=== PATIENT | male | born 1970 | race Caucasian/White ===

== ENCOUNTER 2017-07-22 21:14 | Inpatient (IN) | payer BC ==
[2017-07-22 21:27] VITALS: BMI 25.5
--- NOTE | 2017-07-22 22:04 | HP ---
CIWA Score - CIWA Score Nausea/Vomitin-No Nausea/No Vomiting Muscle Tremors: 4-Moderate,w/Arms Extend Anxiety: 4-Mod. Anxious/Guarded Agitation: 4-Moderately Restless Paroxysmal Sweats: 1-Minimal Palms Moist Orientation: 0-Oriented Tacttile Disturbances: 1-Very Mild Itch/Numbness Auditory Disturbances: 1-Very Mild Visual Disturbances: 2-Mild Sensitivity Headache: 3-Moderate CIWA-Ar Total Score: 20 Admission ROS S - HPI Chief Complaint: withdrawal symptoms Allergies/Adverse Reactions: Allergies Allergy/AdvReac Type Severity Reaction Status Date / Time No Known Allergies Allergy Verified 07/22/17 21:42 History of Present Illness: 47 yo male with extensive history of alcohol dependence is her for detox. Reports alcohol use has worsen since the of his mother in Jun, 2013. Currently smokes on average 1 pack pack of cigarettes when he drinks and 3 cigarettes when sober. Reports hx of fatty Liver, depression, anxiety, reports has had suicidal thoughts, last time time thoughts were present a few weeks ago , currently reports no suicide attempts. currently denies suicidal / homicidal ideation. Last detox at at [facility],. Longest period of sobriety 6 years while in [facility], while in the community the longest period sobriety, 3 months. Exam Limitations: No Limitations - Ebola screening Have you traveled outside of the country in the last 21 days: No Have you had contact with anyone from an Ebola affected area: No Have you been sick,other than usual withdrawal symptoms: No Do you have a fever: No - Review of Systems Constitutional: Chills, Changes in sleep, Unintentional Wgt. Loss EENT: reports: Dental Problems (gum pain secondary to tooth extraction uses glass), Other Respiratory: reports: No Symptoms reported Cardiac: reports: No Symptoms Reported GI: reports: Abdominal cramping (occurs when he is sober) : reports: No Symptoms Reported (reports no urinary symptoms) Musculoskeletal: reports: No Symptoms Reported Integumentary: reports: No Symptoms Reported Neuro: reports: Tremors Endocrine: reports: No Symptoms Reported Hematology: reports: No Symptoms Reported Psychiatric: reports: Orientated x3, Anxious, Depressed Other Systems: Reviewed and Negative Patient History - Patient Medical History Hx Anemia: No Hx Asthma: No Hx Chronic Obstructive Pulmonary Disease (COPD): No Hx Cancer: No Hx Cardiac Disorders: No Hx Congestive Heart Failure: No Hx Hypertension: No Hx Hypercholesterolemia: No Hx Pacemaker: No HX Cerebrovascular Accident: No Hx Seizures: No Hx Dementia: No Hx Diabetes: No Hx Gastrointestinal Disorders: No Hx Liver Disease: Yes (FATTY LIVER) Hx Genitourinary Disorders: No Hx Sexually Transmitted Disorders: No Hx Renal Disease (ESRD): No Hx Thyroid Disease: No Hx Human Immunodeficiency Virus (HIV): No (last 09/03 negative) Hx Hepatitis C: No (2015) Hx Depression: Yes Hx Suicide Attempt: No Hx Bipolar Disorder: No Hx Schizophrenia: No Other Medical History: reports suicidal thoguhts - Patient Surgical History Past Surgical History: No Hx Neurologic Surgery: No Hx Cataract Extraction: No Hx Cardiac Surgery: No Hx Lung Surgery: No Hx Breast Surgery: No Hx Breast Biopsy: No Hx Abdominal Surgery: No Hx Appendectomy: No Hx Cholecystectomy: No Hx Genitourinary Surgery: No Hx Section: No Hx Orthopedic Surgery: No Other Surgical History: pilonidal cyst in 2004 Anesthesia Reaction: No - PPD History Previous Implant?: Yes Documented Results: Negative w/proof Date: 11/13/15 Results: 0 MM PPD to be Administered?: Yes - Reproductive History Patient is a Female of Child Bearing Age (11 -55 yrs old): No - Smoking Cessation Smoking history: Current every day smoker Have you smoked in the past 12 months: No Aproximately how many cigarettes per day: 3 Cigars Per Day: 0 Hx Chewing Tobacco Use: No Initiated information on smoking cessation: No 'Breaking Loose' booklet given: 07/22/17 - Substance & Tx. History Hx Alcohol Use: Yes Hx Substance Use: No Substance Use Type: Alcohol Hx Substance Use [facility]: [facility] ([facility] - Substances Abused Alcohol Route: Oral Frequency: Daily Amount used: beer- 1 case Age of first use: 17 Date of Last Use: 07/22/17 Family Disease History - Family Disease History Family Disease History: Diabetes: Father (ALCOHOL), Other: Father, Mother ( brain ), Brother (suicid "rope") Admission Physical Exam BHS - Vital Signs Vital Signs: Vital Signs - 24 hr 07/22/17 21:25 Temperature 97.9 F Pulse Rate 79 Respiratory 18 Rate Blood Pressure 122/84 - Physical General Appearance: Yes: Alcohol on Breath, Tremorous, Anxious HEENTM: Yes: EOMI, Hearing grossly Normal, Normal ENT Inspection, Normocephalic , Normal Voice, RODO, Pharynx Normal Respiratory: Yes: Chest Non-Tender, Lungs Clear, Normal Breath Sounds, No Respiratory Distress, No Accessory Muscle Use Neck: Yes: No masses,lesions,Nodules, Supple, Trachea in good position Breast: Yes: Breast Exam Deferred Cardiology: Yes: Within Normal Limits, Regular Rhythm, Regular Rate, S1, S2 Abdominal: Yes: Normal Bowel Sounds, Non Tender, Flat, Soft Genitourinary: Yes: Within Normal Limits (reports no urinary symptoms) Back: Yes: Normal Inspection Extremities: Yes: Normal Capillary Refill, Normal Inspection, Normal Range of Motion, Non-Tender Neurological: Yes: partner marketing manager II-XII NML intact, Fully Oriented, Alert, Motor Strength 5/5, Normal Response, Depressed Affect Integumentary: Yes: Normal Color, Dry, Warm Lymphatic: Yes: Within Normal Limits - Addiitonal Findings: HIV testing was offered, patient decline. Benefits and risk discussed. - Diagnostic (1) Anxious mood Current Visit: Yes Status: Acute (2) Depressed mood Current Visit: Yes Status: Acute (3) Alcohol dependence with uncomplicated withdrawal Current Visit: No Status: Chronic (4) Fatty liver Current Visit: No Status: Chronic (5) Nicotine dependence Current Visit: No Status: Chronic Qualifiers: Nicotine product type: cigarettes Substance use status: uncomplicated Qualified Code(s): F17.210 - Nicotine dependence, cigarettes, uncomplicated Comment: patient stated that smoke 3-5 cigarettes during drinking days no cigarette smoking when not drinking alcohol Cleared for Admission [facility] - Detox or Rehab [facility] Level of Care: Medically Managed Detox Regimen/Protocol: Librium [facility] Breath Alcohol Content Breath Alcohol Content: 180 Urine Drug Screen - Results Drug Screen Negative: Yes
[2017-07-22] MEDS ORDERED: hydrOXYzine PAMOATE 50 MG CAPSULE (FP) PO PRN (22:19)
[2017-07-22] MEDS ORDERED: MAGNESIUM HYDROX 2400MG/30ML ORAL SUSPENSION 30 ML CUP PO PRN (22:19)
[2017-07-22] MEDS ORDERED: chlordiazePOXIDE HCL 25 MG CAPSULE PO ONE (22:19)
[2017-07-22] MEDS ORDERED: MAGNESIUM CITRATE 300 ML BOTTLE PO PRN (22:19)
[2017-07-22] MEDS ORDERED: chlordiazePOXIDE HCL 25 MG CAPSULE PO PRN (22:19)
[2017-07-22] MEDS ORDERED: LOPERAMIDE HCL 2 MG CAPSULE PO PRN (22:19)
[2017-07-22] MEDS ORDERED: guaiFENesin/D-METHORPHAN HB 10 ML UNIT-DOSE CUPS PO PRN (22:19)
[2017-07-22] MEDS ORDERED: ACETAMINOPHEN 325 MG TABLET (FP) PO PRN (22:19)
[2017-07-22] MEDS ORDERED: P-EPHED 60MG/TRIPROLIDI 2.5MG TABLET PO PRN (22:19)
[2017-07-22] MEDS ORDERED: IBUPROFEN 400 MG TABLET (FP) PO PRN (22:19)
[2017-07-22] MEDS ORDERED: MAG HYDROX/AL HYDROX/SIMETH 30 ML UNIT-DOSE CUP PO PRN (22:19)
[2017-07-22] MEDS ORDERED: NICOTINE POLACRILEX 2 MG GUM BC PRN (22:19)
[2017-07-22] MEDS ORDERED: MENTHOL/PHENOL 1 EACH UD MM PRN (22:19)
[2017-07-22] MEDS: chlordiazePOXIDE HCL 25 MG CAPSULE PO SCH (23:28)
[2017-07-23] MEDS: chlordiazePOXIDE HCL 25 MG CAPSULE PO SCH ×4 (05:19→22:48)
[2017-07-23 09:59] LABS: HEMATOCRIT 38.9 % (35.4-49); HEMOGLOBIN 12.5 GM/dL (11.7-16.9); MCH 28.7 pg (25.7-33.7); MCHC 32.2 g/dl (32.0-35.9); PLATELET COUNT 173 K/MM3 (134-434); RBC 4.37 M/mm3 (4.00-5.60); RDW 13.1 % (11.9-15.9); WHITE BLOOD COUNT 5.5 K/mm3 (4.0-10.0)
[2017-07-23] MEDS: PRENATAL VITAMINS W/ FOLIC ACID TABLET (FP) PO SCH (10:14)
[2017-07-23] MEDS: NICOTINE 14 MG/24 HOURS TOPICAL PATCH TD SCH (10:16)
--- NOTE | 2017-07-23 10:16 | EKG ---
Test Reason : Blood Pressure : / mmHG Vent. Rate : 088 BPM Atrial Rate : 088 BPM P-R Int : 176 ms QRS Dur : 094 ms QT Int : 368 ms P-R-T Axes : 073 052 044 degrees QTc Int : 445 ms NORMAL SINUS RHYTHM VOLTAGE CRITERIA FOR LEFT VENTRICULAR HYPERTROPHY NONSPECIFIC T WAVE ABNORMALITY ABNORMAL ECG NO PREVIOUS ECGS AVAILABLE Confirmed by MICHELE GUY MD ([id number]) on 07/23/2017 10:15:30 AM Referred By: Confirmed By:MICHELE GUY MD
[2017-07-23 10:20] LABS: ALBUMIN 3.5 g/dl (3.4-5.0); ALK PHOS 75 U/L (45-117); ANION GAP 7 (8-16); BILIRUBIN,TOTAL 0.5 mg/dL (0.2-1.0); BLOOD UREA NITROGEN 7 mg/dL (7-18); CALCIUM 8.3 mg/dL (8.5-10.1); CHLORIDE 108 mmol/L (98-107); CO2 27 mmol/L (21-32); CREATININE 0.9 mg/dL (0.7-1.3); GLUCOSE,RANDOM 104 mg/dL (74-106); POTASSIUM 3.7 mmol/L (3.5-5.1); SGOT/AST 12 U/L (15-37); SGPT/ALT 18 U/L (12-78); SODIUM 142 mmol/L (136-145); TOT PROT 7.2 g/dl (6.4-8.2)
--- NOTE | 2017-07-23 10:38 | CONSULT ---
[facility] Psychiatric Consult - Data Date of interview: 07/22/17 Admission source: [facility] Identifying data: Pt. is a 47 year old single male, without kids, unemployed and homeless. This is patient's first admission to [facility]. Pt. admitted to for alcohol dependence. Substance Abuse History: Following information confirmed with Mr. Lin: Smoking Cessation. Smoking history: Current every day smoker. Have you smoked in the past 12 months: No. Aproximately how many cigarettes per day: 3. Cigars Per Day: 0. Hx Chewing Tobacco Use: No. Initiated information on smoking cessation: No. 'Breaking Loose' booklet given: 07/22/17. - Substance & Tx. History. Hx Alcohol Use: Yes. Hx Substance Use: No. Substance Use Type : Alcohol. Hx Substance Use Treatment: [facility] ([facility] - Substances Abused. Alcohol. Route: Oral. Frequency: Daily. Amount used: beer- 1 case. Age of first use: 17. Date of Last Use: 07/22/17 Medical History: As per records: Fatty liver Psychiatric History: Pt. reports one psychiatric hospitalization at [facility] in 2016 after becoming intoxicated and reporting SI. Pt. states he was discharged the following day after becoming sober and speaking to the physicians. Pt. reports outpatient care in 2006 but reports medication nonadherence. Pt. denies h/o suicide attempts. Pt. denies suicidal and homicidal ideation. Physical/Sexual Abuse/Trauma History: Denies. Mental Status Exam - Mental Status Exam Alert and Oriented to: Time, Place, Person Cognitive Function: Good Patient Appearance: Well Groomed Mood: Euthymic Affect: Mood Congruent Patient Behavior: Cooperative Speech Pattern: Appropriate Voice Loudness: Normal Thought Process: Goal Oriented Thought Disorder: Not Present Hallucinations: Denies Suicidal Ideation: Denies Homicidal Ideation: Denies Sleep: Poorly Appetite: Fair, Poor Muscle strength/Tone: Normal Gait/Station: Normal Psychiatric Findings - Problem List ([place] 1, 2,3) (1) Insomnia Current Visit: Yes Status: Acute (2) Alcohol dependence Current Visit: Yes Status: Active (3) Substance induced mood disorder Current Visit: No Status: Suspected - Initial Treatment Plan Initial Treatment Plan: Psychoeducation provided. Detoxification in progress. Melatonin 5mg qhs PRN ordered for insomnia. Benefits and side effects discussed. Pt. reports favorable effects from previously taking melatonin. Verbal consent given. Will continue to monitor.
--- NOTE | 2017-07-23 13:12 | PN ---
S CIWA - CIWA Score Nausea/Vomitin Muscle Tremors: 3 Anxiety: 3 Agitation: 3 Paroxysmal Sweats: 1-Minimal Palms Moist Orientation: 0-Oriented Tacttile Disturbances: 1-Very Mild Itch/Numbness Auditory Disturbances: 1-Very Mild Visual Disturbances: 0-None Headache: 2-Mild CIWA-Ar Total Score: 17 BHS Progress Note (SOAP) Subjective: ALERT,IRRITABLE,ANXIOUS,INTERRUPTED SLEEP,TREMOR Objective: 07/23/17 13:10 Vital Signs Temperature 97.7 F 07/23/17 10:10 Pulse Rate 84 07/23/17 10:10 Respiratory Rate 18 07/23/17 10:10 Blood Pressure 127/74 07/23/17 10:10 O2 Sat by Pulse Oximetry (%) EKG NSR,LVH NO CHEST PAIN,NO SOB,NO DIZZINESS Laboratory Last Values WBC 5.5 K/mm3 (4.0-10.0) 07/23/17 07:00 RBC 4.37 M/mm3 (4.00-5.60) 07/23/17 07:00 Hgb 12.5 GM/dL (11.7-16.9) 07/23/17 07:00 Hct 38.9 % (35.4-49) 07/23/17 07:00 MCV 89.0 fl (80-96) 07/23/17 07:00 MCH 28.7 pg (25.7-33.7) 07/23/17 07:00 MCHC 32.2 g/dl (32.0-35.9) 07/23/17 07:00 RDW 13.1 % (11.9-15.9) 07/23/17 07:00 Plt Count 173 K/MM3 (134-434) D 07/23/17 07:00 MPV 10.0 fl (7.5-11.1) 07/23/17 07:00 Sodium 142 mmol/L (136-145) 07/23/17 07:00 Potassium 3.7 mmol/L (3.5-5.1) 07/23/17 07:00 Chloride 108 mmol/L (98-107) H 07/23/17 07:00 Carbon Dioxide 27 mmol/L (21-32) 07/23/17 07:00 Anion Gap 7 (8-16) L 07/23/17 07:00 BUN 7 mg/dL (7-18) 07/23/17 07:00 Creatinine 0.9 mg/dL (0.7-1.3) D 07/23/17 07:00 Creat Clearance w eGFR > 60 (>60) 07/23/17 07:00 Random Glucose 104 mg/dL (74-106) 07/23/17 07:00 Calcium 8.3 mg/dL (8.5-10.1) L 07/23/17 07:00 Total Bilirubin 0.5 mg/dL (0.2-1.0) D 07/23/17 07:00 AST 12 U/L (15-37) L D 07/23/17 07:00 ALT 18 U/L (12-78) D 07/23/17 07:00 Alkaline Phosphatase 75 U/L (45-117) D 07/23/17 07:00 Total Protein 7.2 g/dl (6.4-8.2) 07/23/17 07:00 Albumin 3.5 g/dl (3.4-5.0) 07/23/17 07:00 RPR Titer Nonreactive (NONREACTIVE) 07/23/17 07:00 Assessment: 07/23/17 13:11 WITHDRAWAL SYMPTOM LABS PENDING Plan: CONTINUE DETOX
[2017-07-23] MEDS ORDERED: MELATONIN 5 MG TABLETS PO PRN (22:00)
[2017-07-23] MEDS: THIAMINE HCL 100 MG TABLET (FP) PO SCH (22:48)
[2017-07-24] MEDS: chlordiazePOXIDE HCL 25 MG CAPSULE PO SCH ×3 (05:48→17:36)
[2017-07-24] MEDS: PRENATAL VITAMINS W/ FOLIC ACID TABLET (FP) PO SCH (10:10)
[2017-07-24] MEDS: NICOTINE 14 MG/24 HOURS TOPICAL PATCH TD SCH (10:10)
--- NOTE | 2017-07-24 11:35 | PN ---
S CIWA - CIWA Score Nausea/Vomitin Muscle Tremors: 3 Anxiety: 3 Agitation: 3 Paroxysmal Sweats: 1-Minimal Palms Moist Orientation: 0-Oriented Tacttile Disturbances: 1-Very Mild Itch/Numbness Auditory Disturbances: 1-Very Mild Visual Disturbances: 0-None Headache: 2-Mild CIWA-Ar Total Score: 17 BHS Progress Note (SOAP) Subjective: ALERT,IRRITABLE,ANXIOUS,INTERRUPTED SLEEP,TREMOR Objective: 07/24/17 11:34 Vital Signs Temperature 98.2 F 07/24/17 10:08 Pulse Rate 56 L 07/24/17 10:08 Respiratory Rate 18 07/24/17 10:08 Blood Pressure 124/79 07/24/17 10:08 O2 Sat by Pulse Oximetry (%) Laboratory Last Values WBC 5.5 K/mm3 (4.0-10.0) 07/23/17 07:00 RBC 4.37 M/mm3 (4.00-5.60) 07/23/17 07:00 Hgb 12.5 GM/dL (11.7-16.9) 07/23/17 07:00 Hct 38.9 % (35.4-49) 07/23/17 07:00 MCV 89.0 fl (80-96) 07/23/17 07:00 MCH 28.7 pg (25.7-33.7) 07/23/17 07:00 MCHC 32.2 g/dl (32.0-35.9) 07/23/17 07:00 RDW 13.1 % (11.9-15.9) 07/23/17 07:00 Plt Count 173 K/MM3 (134-434) D 07/23/17 07:00 MPV 10.0 fl (7.5-11.1) 07/23/17 07:00 Sodium 142 mmol/L (136-145) 07/23/17 07:00 Potassium 3.7 mmol/L (3.5-5.1) 07/23/17 07:00 Chloride 108 mmol/L (98-107) H 07/23/17 07:00 Carbon Dioxide 27 mmol/L (21-32) 07/23/17 07:00 Anion Gap 7 (8-16) L 07/23/17 07:00 BUN 7 mg/dL (7-18) 07/23/17 07:00 Creatinine 0.9 mg/dL (0.7-1.3) D 07/23/17 07:00 Creat Clearance w eGFR > 60 (>60) 07/23/17 07:00 Random Glucose 104 mg/dL (74-106) 07/23/17 07:00 Calcium 8.3 mg/dL (8.5-10.1) L 07/23/17 07:00 Total Bilirubin 0.5 mg/dL (0.2-1.0) D 07/23/17 07:00 AST 12 U/L (15-37) L D 07/23/17 07:00 ALT 18 U/L (12-78) D 07/23/17 07:00 Alkaline Phosphatase 75 U/L (45-117) D 07/23/17 07:00 Total Protein 7.2 g/dl (6.4-8.2) 07/23/17 07:00 Albumin 3.5 g/dl (3.4-5.0) 07/23/17 07:00 RPR Titer Nonreactive (NONREACTIVE) 07/23/17 07:00 Assessment: 07/24/17 11:34 WITHDRAWAL SYMPTOM Plan: CONTINUE DETOX
[2017-07-24 18:24] LABS: URINE APPEARANCE CLEAR; URINE BILIRUBIN NEGATIVE (NEGATIVE); URINE BLOOD NEGATIVE (NEGATIVE); URINE COLOR LTYELLOW; URINE GLUCOSE (UA) NEGATIVE (NEGATIVE); URINE KETONE NEGATIVE (NEGATIVE); URINE LEUK ESTERASE NEGATIVE (NEGATIVE); URINE NITRITE NEGATIVE (NEGATIVE); URINE PROTEIN NEGATIVE (NEGATIVE); URINE UROBILINOGEN NEGATIVE mg/dL (0.2-1.0)
[2017-07-24] MEDS: THIAMINE HCL 100 MG TABLET (FP) PO SCH (22:13)
[2017-07-24] MEDS: chlordiazePOXIDE 5 MG CAPSULE PO SCH (22:13)
[2017-07-25] MEDS: chlordiazePOXIDE 5 MG CAPSULE PO SCH ×3 (05:16→20:47)
[2017-07-25] MEDS: NICOTINE 14 MG/24 HOURS TOPICAL PATCH TD SCH (10:16)
[2017-07-25] MEDS: PRENATAL VITAMINS W/ FOLIC ACID TABLET (FP) PO SCH (10:16)
--- NOTE | 2017-07-25 14:27 | PN ---
BHS Progress Note (SOAP) Subjective: sweat tremor anxiety Objective: 07/25/17 14:27 Vital Signs Temperature 97.3 F L 07/25/17 10:11 Pulse Rate 69 07/25/17 10:11 Respiratory Rate 18 07/25/17 10:11 Blood Pressure 134/79 07/25/17 10:11 O2 Sat by Pulse Oximetry (%) Laboratory Last Values WBC 5.5 K/mm3 (4.0-10.0) 07/23/17 07:00 RBC 4.37 M/mm3 (4.00-5.60) 07/23/17 07:00 Hgb 12.5 GM/dL (11.7-16.9) 07/23/17 07:00 Hct 38.9 % (35.4-49) 07/23/17 07:00 MCV 89.0 fl (80-96) 07/23/17 07:00 MCH 28.7 pg (25.7-33.7) 07/23/17 07:00 MCHC 32.2 g/dl (32.0-35.9) 07/23/17 07:00 RDW 13.1 % (11.9-15.9) 07/23/17 07:00 Plt Count 173 K/MM3 (134-434) D 07/23/17 07:00 MPV 10.0 fl (7.5-11.1) 07/23/17 07:00 Sodium 142 mmol/L (136-145) 07/23/17 07:00 Potassium 3.7 mmol/L (3.5-5.1) 07/23/17 07:00 Chloride 108 mmol/L (98-107) H 07/23/17 07:00 Carbon Dioxide 27 mmol/L (21-32) 07/23/17 07:00 Anion Gap 7 (8-16) L 07/23/17 07:00 BUN 7 mg/dL (7-18) 07/23/17 07:00 Creatinine 0.9 mg/dL (0.7-1.3) D 07/23/17 07:00 Creat Clearance w eGFR > 60 (>60) 07/23/17 07:00 Random Glucose 104 mg/dL (74-106) 07/23/17 07:00 Calcium 8.3 mg/dL (8.5-10.1) L 07/23/17 07:00 Total Bilirubin 0.5 mg/dL (0.2-1.0) D 07/23/17 07:00 AST 12 U/L (15-37) L D 07/23/17 07:00 ALT 18 U/L (12-78) D 07/23/17 07:00 Alkaline Phosphatase 75 U/L (45-117) D 07/23/17 07:00 Total Protein 7.2 g/dl (6.4-8.2) 07/23/17 07:00 Albumin 3.5 g/dl (3.4-5.0) 07/23/17 07:00 Urine Color Ltyellow 07/24/17 17:30 Urine Appearance Clear 07/24/17 17:30 Urine pH 7.0 (5.0-8.0) 07/24/17 17:30 Ur Specific [place] 1.009 (1.001-1.035) 07/24/17 17:30 Urine Protein Negative (NEGATIVE) 07/24/17 17:30 Urine Glucose (UA) Negative (NEGATIVE) 07/24/17 17:30 Urine Ketones Negative (NEGATIVE) 07/24/17 17:30 Urine Blood Negative (NEGATIVE) 07/24/17 17:30 Urine Nitrite Negative (NEGATIVE) 07/24/17 17:30 Urine Bilirubin Negative (NEGATIVE) 07/24/17 17:30 Urine Urobilinogen Negative mg/dL (0.2-1.0) 07/24/17 17:30 Ur Leukocyte Esterase Negative (NEGATIVE) 07/24/17 17:30 RPR Titer Nonreactive (NONREACTIVE) 07/23/17 07:00 lab noted Assessment: 07/25/17 14:28 withdrawal sx Plan: continue detox
[2017-07-25] MEDS: chlordiazePOXIDE HCL 10 MG CAPSULE PO SCH (22:15)
[2017-07-25] MEDS: THIAMINE HCL 100 MG TABLET (FP) PO SCH (22:15)
[2017-07-26] MEDS: chlordiazePOXIDE HCL 10 MG CAPSULE PO SCH (05:37)
[2017-07-26 06:17] VITALS: BP 127/78; PULSE 66; TEMP 97.5
--- NOTE | 2017-07-26 08:48 | DS ---
[facility] Detox Discharge Summary Admission Date: 07/22/17 Discharge Date: 07/26/17 - History Present History: Alcohol Dependence - Physical Exam Results Vital Signs: Vital Signs Temperature 97.5 F L 07/26/17 06:17 Pulse Rate 66 07/26/17 06:17 Respiratory Rate 16 07/26/17 06:17 Blood Pressure 127/78 07/26/17 06:17 O2 Sat by Pulse Oximetry (%) Pertinent Admission Physical Exam Findings: withdrawal sx Vital Signs Temperature 97.5 F L 07/26/17 06:17 Pulse Rate 66 07/26/17 06:17 Respiratory Rate 16 07/26/17 06:17 Blood Pressure 127/78 07/26/17 06:17 O2 Sat by Pulse Oximetry (%) Laboratory Last Values WBC 5.5 K/mm3 (4.0-10.0) 07/23/17 07:00 RBC 4.37 M/mm3 (4.00-5.60) 07/23/17 07:00 Hgb 12.5 GM/dL (11.7-16.9) 07/23/17 07:00 Hct 38.9 % (35.4-49) 07/23/17 07:00 MCV 89.0 fl (80-96) 07/23/17 07:00 MCH 28.7 pg (25.7-33.7) 07/23/17 07:00 MCHC 32.2 g/dl (32.0-35.9) 07/23/17 07:00 RDW 13.1 % (11.9-15.9) 07/23/17 07:00 Plt Count 173 K/MM3 (134-434) D 07/23/17 07:00 MPV 10.0 fl (7.5-11.1) 07/23/17 07:00 Sodium 142 mmol/L (136-145) 07/23/17 07:00 Potassium 3.7 mmol/L (3.5-5.1) 07/23/17 07:00 Chloride 108 mmol/L (98-107) H 07/23/17 07:00 Carbon Dioxide 27 mmol/L (21-32) 07/23/17 07:00 Anion Gap 7 (8-16) L 07/23/17 07:00 BUN 7 mg/dL (7-18) 07/23/17 07:00 Creatinine 0.9 mg/dL (0.7-1.3) D 07/23/17 07:00 Creat Clearance w eGFR > 60 (>60) 07/23/17 07:00 Random Glucose 104 mg/dL (74-106) 07/23/17 07:00 Calcium 8.3 mg/dL (8.5-10.1) L 07/23/17 07:00 Total Bilirubin 0.5 mg/dL (0.2-1.0) D 07/23/17 07:00 AST 12 U/L (15-37) L D 07/23/17 07:00 ALT 18 U/L (12-78) D 07/23/17 07:00 Alkaline Phosphatase 75 U/L (45-117) D 07/23/17 07:00 Total Protein 7.2 g/dl (6.4-8.2) 07/23/17 07:00 Albumin 3.5 g/dl (3.4-5.0) 07/23/17 07:00 Urine Color Ltyellow 07/24/17 17:30 Urine Appearance Clear 07/24/17 17:30 Urine pH 7.0 (5.0-8.0) 07/24/17 17:30 Ur Specific [place] 1.009 (1.001-1.035) 07/24/17 17:30 Urine Protein Negative (NEGATIVE) 07/24/17 17:30 Urine Glucose (UA) Negative (NEGATIVE) 07/24/17 17:30 Urine Ketones Negative (NEGATIVE) 07/24/17 17:30 Urine Blood Negative (NEGATIVE) 07/24/17 17:30 Urine Nitrite Negative (NEGATIVE) 07/24/17 17:30 Urine Bilirubin Negative (NEGATIVE) 07/24/17 17:30 Urine Urobilinogen Negative mg/dL (0.2-1.0) 07/24/17 17:30 Ur Leukocyte Esterase Negative (NEGATIVE) 07/24/17 17:30 RPR Titer Nonreactive (NONREACTIVE) 07/23/17 07:00 lab noted - Treatment Hospital Course: Detox Protocol Followed, Detoxed Safely, Responded well, Discharged Condition Good, Rehab Referral Accepted Patient has Accepted a Rehab Referral to: as per counselor arranged - Medication Discharge Medications: Ambulatory Orders NK [No Known Home Medication] 05/25/14 - Diagnosis (1) Alcohol dependence with uncomplicated withdrawal Current Visit: Yes Status: Acute - AMA Did Patient Leave Against Medical Advice: No
== END 2017-07-26 09:20 | disposition home or self-care (01) | DRG 775 ==
LOC: YASAS 21:14 → Y6N 22:28
PROVIDERS: ADMIT Internal Medicine; ATTEND Internal Medicine
PROC: HZ2ZZZZ Detoxification Services for Substance Abuse Treatment (ICD-10-PCS; principal; 2017-07-22)
DX: F10.230 Alcohol dependence with withdrawal, uncomplicated (principal); F17.210 Nicotine dependence, cigarettes, uncomplicated; F19.24 Other psychoactive substance dependence with psychoactive substance-induced mood disorder; F41.9 Anxiety disorder, unspecified; F32.9 Major depressive disorder, single episode, unspecified; K76.0 Fatty (change of) liver, not elsewhere classified; G47.00 Insomnia, unspecified
CPT/HCPCS: 36415; 80053; 81003; 85027; 86593; 93005; 93010

== ENCOUNTER 2017-11-29 19:59 | Inpatient (IN) | payer BC ==
[2017-11-29 21:08] VITALS: BMI 25.7
--- NOTE | 2017-11-29 21:24 | HP ---
CIWA Score - CIWA Score Nausea/Vomitin-No Nausea/No Vomiting Muscle Tremors: 1-None Visible, but [place] Anxiety: 3 Agitation: 4-Moderately Restless Paroxysmal Sweats: 3 Orientation: 0-Oriented Tacttile Disturbances: 1-Very Mild Itch/Numbness Auditory Disturbances: 0-None Visual Disturbances: 0-None Headache: 1-Very Mild CIWA-Ar Total Score: 13 Admission ROS BHS - HPI Chief Complaint: SEEKING DETOX FOR WORSENING WITHDRAWAL SX'S Allergies/Adverse Reactions: Allergies Allergy/AdvReac Type Severity Reaction Status Date / Time No Known Allergies Allergy Verified 07/22/17 21:42 History of Present Illness: 47 Y.O. MALE WITH LONG HX/O ALCOHOLISM KNOWN TO THIS PROGRAM RETURNS FOR DETOX TXMENT. CLIENT LAST HERE 07/2017 BUT HAS SINCE RELAPSED. SELF REFERRED. REPORTS LONGEST SOBRIETY 3 MONTHS. DENIES HX/O SI AND SEIZURES. REPORTS A/V HALLUCINATIONS AT TIMES WHEN WITHDRAWING BUT PRESENTLY DENIES. Exam Limitations: No Limitations - Ebola screening Have you traveled outside of the country in the last 21 days: No Have you had contact with anyone from an Ebola affected area: No Have you been sick,other than usual withdrawal symptoms: No Do you have a fever: No - Review of Systems Constitutional: Chills, Loss of Appetite, Night Sweats, Changes in sleep EENT: reports: Dental Problems (MISSING TEETH) Respiratory: reports: No Symptoms reported Cardiac: reports: No Symptoms Reported GI: reports: Poor Appetite : reports: No Symptoms Reported Musculoskeletal: reports: Back Pain Integumentary: reports: No Symptoms Reported Neuro: reports: No Symptoms reported Endocrine: reports: No Symptoms Reported Hematology: reports: No Symptoms Reported Psychiatric: reports: Anxious, Depressed Other Systems: Reviewed and Negative Patient History - Patient Medical History Hx Anemia: No Hx Asthma: No Hx Chronic Obstructive Pulmonary Disease (COPD): No Hx Cancer: No Hx Cardiac Disorders: No Hx Congestive Heart Failure: No Hx Hypertension: No Hx Hypercholesterolemia: No Hx Pacemaker: No HX Cerebrovascular Accident: No Hx Seizures: No Hx Dementia: No Hx Diabetes: No Hx Gastrointestinal Disorders: No Hx Liver Disease: Yes (FATTY LIVER) Hx Genitourinary Disorders: No Hx Sexually Transmitted Disorders: No Hx Renal Disease (ESRD): No Hx Thyroid Disease: No Hx Human Immunodeficiency Virus (HIV): No (last 09/03 negative) Hx Hepatitis C: No (2016) Hx Depression: Yes Hx Suicide Attempt: No Hx Bipolar Disorder: No Hx Schizophrenia: No Other Medical History: DENIES - Patient Surgical History Past Surgical History: No Hx Neurologic Surgery: No Hx Cataract Extraction: No Hx Cardiac Surgery: No Hx Lung Surgery: No Hx Breast Surgery: No Hx Breast Biopsy: No Hx Abdominal Surgery: No Hx Appendectomy: No Hx Cholecystectomy: No Hx Genitourinary Surgery: No Hx Section: No Hx Orthopedic Surgery: No Other Surgical History: pilonidal cyst in 2004 Anesthesia Reaction: No - PPD History Previous Implant?: Yes Documented Results: Negative w/proof Implanted On Prior [facility] Admission?: Yes Date: 07/25/17 Results: 0 MM PPD to be Administered?: No - Smoking Cessation Smoking history: Current every day smoker Have you smoked in the past 12 months: No Aproximately how many cigarettes per day: 3 Cigars Per Day: 0 Hx Chewing Tobacco Use: No Initiated information on smoking cessation: Yes 'Breaking Loose' booklet given: 11/29/17 - Substance & Tx. History Hx Alcohol Use: Yes Hx Substance Use: Yes Substance Use Type: Alcohol Hx Substance Use Treatment: Yes ([facility]) - Substances Abused BEER Route: Oral Frequency: 3-6 times per week Amount used: 10 -24 OZ CANS Age of first use: 16 Date of Last Use: 11/29/17 Family Disease History - Family Disease History Family Disease History: Diabetes: Father (ALCOHOL), Other: Father, Mother ( brain ), Brother (suicid "rope") Admission Physical Exam BHS - Vital Signs Vital Signs: Vital Signs - 24 hr 11/29/17 21:05 Temperature 98.1 F Pulse Rate 80 Respiratory 18 Rate Blood Pressure 146/86 - Physical General Appearance: Yes: Appropriately Dressed, Alcohol on Breath, Intoxicated, Tremorous (FELT), Irritable, Anxious HEENTM: Yes: EOMI, Normocephalic, Normal Voice, RODO, Pharynx Normal Respiratory: Yes: Chest Non-Tender, Lungs Clear, Normal Breath Sounds, No Respiratory Distress, No Accessory Muscle Use Neck: Yes: No masses,lesions,Nodules, Supple, Trachea in good position Breast: Yes: Breast Exam Deferred Cardiology: Yes: Regular Rhythm, Regular Rate, S1, S2 Abdominal: Yes: Normal Bowel Sounds, Non Tender, Flat Genitourinary: Yes: Within Normal Limits Back: Yes: Normal Inspection Musculoskeletal: Yes: full range of Motion, Gait Steady Extremities: Yes: Normal Capillary Refill, Normal Range of Motion, Non-Tender, Tremors Neurological: Yes: Fully Oriented, Alert, Motor Strength 5/5 Integumentary: Yes: Normal Color, Dry, Warm Lymphatic: Yes: Within Normal Limits - Diagnostic (1) Alcohol dependence with uncomplicated withdrawal Current Visit: No Status: Acute (2) Nicotine dependence Current Visit: No Status: Chronic Qualifiers: Nicotine product type: cigarettes Substance use status: uncomplicated Qualified Code(s): F17.210 - Nicotine dependence, cigarettes, uncomplicated Comment: patient stated that smoke 3-5 cigarettes during drinking days no cigarette smoking when not drinking alcohol (3) Substance induced mood disorder Current Visit: No Status: Suspected Cleared for Admission [facility] - Detox or Rehab [facility] Level of Care: Medically Managed Detox Regimen/Protocol: Librium Claeared for Rehab Admission: No [facility] Breath Alcohol Content Breath Alcohol Content: 0.250 Urine Drug Screen - Results Drug Screen Negative: Yes
[2017-11-29] MEDS ORDERED: chlordiazePOXIDE HCL 25 MG CAPSULE PO PRN (21:33)
[2017-11-29] MEDS ORDERED: MAG HYDROX/AL HYDROX/SIMETH 30 ML UNIT-DOSE CUP PO PRN (21:33)
[2017-11-29] MEDS ORDERED: MENTHOL/PHENOL 1 EACH UD MM PRN (21:33)
[2017-11-29] MEDS ORDERED: ACETAMINOPHEN 325 MG TABLET (FP) PO PRN (21:33)
[2017-11-29] MEDS ORDERED: guaiFENesin/D-METHORPHAN HB 10 ML UNIT-DOSE CUPS PO PRN (21:33)
[2017-11-29] MEDS ORDERED: MAGNESIUM HYDROX 2400MG/30ML ORAL SUSPENSION 30 ML CUP PO PRN (21:33)
[2017-11-29] MEDS ORDERED: IBUPROFEN 400 MG TABLET (FP) PO PRN (21:33)
[2017-11-29] MEDS ORDERED: P-EPHED 60MG/TRIPROLIDI 2.5MG TABLET PO PRN (21:33)
[2017-11-29] MEDS ORDERED: LOPERAMIDE HCL 2 MG CAPSULE PO PRN (21:33)
[2017-11-29] MEDS ORDERED: MAGNESIUM CITRATE 300 ML BOTTLE PO PRN (21:33)
[2017-11-29] MEDS ORDERED: MELATONIN 5 MG TABLETS PO PRN (22:00)
[2017-11-29 23:30] LABS: URINE APPEARANCE CLEAR; URINE BILIRUBIN NEGATIVE (<2.0 mg/dL); URINE COLOR COLORLESS; URINE GLUCOSE (UA) 1+ (NEGATIVE); URINE KETONE NEGATIVE (NEGATIVE); URINE LEUK ESTERASE NEGATIVE (NEGATIVE); URINE NITRITE NEGATIVE (NEGATIVE); URINE PROTEIN NEGATIVE (NEGATIVE); URINE UROBILINOGEN NEGATIVE mg/dL (0.2-1.0)
[2017-11-30] MEDS: THIAMINE HCL 100 MG TABLET (FP) PO SCH ×2 (01:32→22:18)
[2017-11-30] MEDS: chlordiazePOXIDE HCL 25 MG CAPSULE PO SCH ×5 (01:32→22:18)
[2017-11-30 10:12] LABS: HEMATOCRIT 39.3 % (35.4-49); HEMOGLOBIN 13.3 GM/dL (11.7-16.9); MCHC 33.7 g/dl (32.0-35.9); MEAN CELL VOLUME 91.8 fl (80-96); MEAN PLT VOLUME 9.6 fl (7.5-11.1); PLATELET COUNT 104 K/MM3 (134-434); RBC 4.29 M/mm3 (4.00-5.60); RDW 13.6 % (11.9-15.9); WHITE BLOOD COUNT 4.2 K/mm3 (4.0-10.0)
[2017-11-30] MEDS: NICOTINE 14 MG/24 HOURS TOPICAL PATCH TD SCH (10:14)
[2017-11-30] MEDS: NICOTINE POLACRILEX 2 MG GUM BC PRN ×2 (10:14→17:40)
[2017-11-30] MEDS: PRENATAL VITAMINS W/ FOLIC ACID TABLET (FP) PO SCH (10:14)
[2017-11-30 10:35] LABS: CHLORIDE 101 mmol/L (98-107); POTASSIUM 3.9 mmol/L (3.5-5.1); SODIUM 141 mmol/L (136-145)
[2017-11-30 12:16] LABS: ALBUMIN 3.7 g/dl (3.4-5.0); ALK PHOS 71 U/L (45-117); ANION GAP 10 (8-16); BILIRUBIN,TOTAL 1.3 mg/dL (0.2-1.0); BLOOD UREA NITROGEN 6 mg/dL (7-18); CALCIUM 8.7 mg/dL (8.5-10.1); CO2 30 mmol/L (21-32); CREATININE 0.9 mg/dL (0.7-1.3); GLUCOSE,RANDOM 93 mg/dL (74-106); SGOT/AST 137 U/L (15-37); SGPT/ALT 114 U/L (12-78); TOT PROT 7.5 g/dl (6.4-8.2)
--- NOTE | 2017-11-30 12:17 | CONSULT ---
[facility] Psychiatric Consult - Data Date of interview: 11/30/17 Admission source: [facility] Identifying data: Readmission to [facility] for this 47 y/o male seeking detox treatment on for alcohol dependence.Patient is single without children,domiciled,unemployed and supported on SSI benefits. Substance Abuse History: Confirmed by the patient in this interview.Smoking history: Current every day smoker. Have you smoked in the past 12 months: No. Aproximately how many cigarettes per day: 3. Cigars Per Day: 0. Hx Chewing Tobacco Use: No. Initiated information on smoking cessation: Yes. 'Breaking Loose' booklet given: 11/29/17. - Substance & Tx. History. Hx Alcohol Use: Yes. Hx Substance Use: Yes. Substance Use Type: Alcohol. Hx Substance Use Treatment: Yes ([facility]). - Substances Abused. BEER. Route: Oral. Frequency : 3-6 times per week. Amount used: 10 -24 OZ CANS. Age of first use: 16. Date of Last Use: 11/29/17 Medical History: Significant for liver disease (fatty liver) and a distant history of surgery 9excision of a pilonidal cyst in 2004). Psychiatric History: No reported history of psychiatric hospitalizations.Briefly diagnosed with Anxiety Disorder and prescribed fluoxetine but the patient did no follow with OPD care.Mr Lin has declared his disinterest for psychotropic medications.Denies history of suicide attempts. Physical/Sexual Abuse/Trauma History: Patient denies. Additional Comment: Drug Screen is negative. Mental Status Exam - Mental Status Exam Alert and Oriented to: Time, Place, Person Cognitive Function: Good Patient Appearance: Well Groomed Mood: Withdrawn, Hopeful Affect: Appropriate, Normal Range Patient Behavior: Fatigued, Cooperative Speech Pattern: Clear Voice Loudness: Normal Thought Process: Intact, Goal Oriented Thought Disorder: Not Present Hallucinations: Denies Suicidal Ideation: Denies Homicidal Ideation: Denies Insight/Judgement: Poor Sleep: Well Appetite: Good Muscle strength/Tone: Normal Gait/Station: Other Additional Comments: not observed ; patient in bed for the duration of interview Psychiatric Findings - Problem List (Polaris 1, 2,3) (1) Alcohol dependence with uncomplicated withdrawal Current Visit: Yes Status: Acute (2) Nicotine dependence Current Visit: Yes Status: Acute Qualifiers: Nicotine product type: cigarettes Substance use status: uncomplicated Qualified Code(s): F17.210 - Nicotine dependence, cigarettes, uncomplicated Comment: patient stated that smoke 3-5 cigarettes during drinking days no cigarette smoking when not drinking alcohol - Initial Treatment Plan Initial Treatment Plan: Psychoeducation.Sleep hygiene.Detoxification in process.Observation.
--- NOTE | 2017-11-30 12:24 | EKG ---
Test Reason : Blood Pressure : / mmHG Vent. Rate : 060 BPM Atrial Rate : 060 BPM P-R Int : 152 ms QRS Dur : 102 ms QT Int : 408 ms P-R-T Axes : 048 045 038 degrees QTc Int : 408 ms NORMAL SINUS RHYTHM MODERATE VOLTAGE CRITERIA FOR LVH, MAY BE NORMAL VARIANT ST ELEVATION, CONSIDER EARLY REPOLARIZATION, PERICARDITIS, OR INJURY BORDERLINE ECG Confirmed by MD LISA, MAXWELL ([id number]) on 11/30/2017 12:23:52 PM Referred By: Confirmed By:MAXWELL GONZALEZ MD
--- NOTE | 2017-11-30 13:59 | PN ---
[facility] CIWA - CIWA Score Nausea/Vomitin-No Nausea/No Vomiting Muscle Tremors: 3 Anxiety: 4-Mod. Anxious/Guarded Agitation: 2 Paroxysmal Sweats: 3 Orientation: 2-Disoriented Date<2 days Tacttile Disturbances: 2-Mild Itch/Numbness/Burn Auditory Disturbances: 0-None Visual Disturbances: 0-None Headache: 0-None Present CIWA-Ar Total Score: 16 BHS Progress Note (SOAP) Subjective: Stomach Cramping, Sweating, Tremors, Diarrhea, Poor Appetite, Diarrhea. Objective: PATIENT A & O X 2 (UNCERTAIN ABOUT CURRENT DAY / DATE). PATIENT OBSERVED AMBULATING ON UNIT. NO ACUTE DISTRESS. 11/30/17 13:57 Vital Signs Temperature 96.8 F L 11/30/17 09:17 Pulse Rate 103 H 11/30/17 11:30 Respiratory Rate 20 11/30/17 11:30 Blood Pressure 111/68 11/30/17 09:17 O2 Sat by Pulse Oximetry (%) Laboratory Tests 11/29/17 11/30/17 11/30/17 22:30 07:20 07:20 WBC 4.2 RBC 4.29 Hgb 13.3 Hct 39.3 MCV 91.8 MCH 31.0 MCHC 33.7 RDW 13.6 Plt Count 104 L D MPV 9.6 Sodium 141 Potassium 3.9 Chloride 101 Carbon Dioxide 30 Anion Gap 10 BUN 6 L Creatinine 0.9 Creat Clearance w eGFR > 60 Random Glucose 93 Calcium 8.7 Total Bilirubin 1.3 H D AST 137 H D ALT 114 H D Alkaline Phosphatase 71 Total Protein 7.5 Albumin 3.7 Urine Color Colorless Urine Appearance Clear Urine pH 6.0 Ur Specific [place] 1.003 Urine Protein Negative Urine Glucose (UA) 1+ H Urine Ketones Negative Urine Blood Negative Urine Nitrite Negative Urine Bilirubin Negative Urine Urobilinogen Negative Ur Leukocyte Esterase Negative LABS NOTED. RPR RESULT PENDING. 11/30/17 13:58 Assessment: 11/30/17 13:57 WITHDRAWAL SYMPTOMS. Plan: CONTINUE DETOX. HEPATIC FUNCTION PANEL ON 12/02/2017 FOR ABNORMAL ADMISSION HEPATIC VALUES. INCREASE DAILY PO FLUID INTAKE.
[2017-11-30] MEDS: hydrOXYzine PAMOATE 50 MG CAPSULE (FP) PO PRN ×2 (17:13→21:24)
[2017-12-01] MEDS: chlordiazePOXIDE HCL 25 MG CAPSULE PO SCH ×3 (06:17→17:44)
[2017-12-01] MEDS: PRENATAL VITAMINS W/ FOLIC ACID TABLET (FP) PO SCH (10:55)
[2017-12-01] MEDS: NICOTINE 14 MG/24 HOURS TOPICAL PATCH TD SCH (10:55)
--- NOTE | 2017-12-01 12:18 | PN ---
[facility] CIWA - CIWA Score Nausea/Vomitin-No Nausea/No Vomiting Muscle Tremors: None Anxiety: 4-Mod. Anxious/Guarded Agitation: 0-Normal Activity Paroxysmal Sweats: 3 Orientation: 0-Oriented Tacttile Disturbances: 2-Mild Itch/Numbness/Burn Auditory Disturbances: 1-Very Mild Visual Disturbances: 2-Mild Sensitivity Headache: 0-None Present CIWA-Ar Total Score: 12 BHS Progress Note (SOAP) Subjective: Sweating, Anxious, Fatigue, Diarrhea. Objective: PATIENT A & O X 3. NO ACUTE DISTRESS. 12/01/17 12:16 Vital Signs Temperature 98.4 F 12/01/17 09:34 Pulse Rate 68 12/01/17 09:34 Respiratory Rate 18 12/01/17 09:34 Blood Pressure 107/74 12/01/17 09:34 O2 Sat by Pulse Oximetry (%) Laboratory Tests 11/29/17 11/30/17 11/30/17 22:30 07:20 07:20 WBC 4.2 RBC 4.29 Hgb 13.3 Hct 39.3 MCV 91.8 MCH 31.0 MCHC 33.7 RDW 13.6 Plt Count 104 L D MPV 9.6 Sodium 141 Potassium 3.9 Chloride 101 Carbon Dioxide 30 Anion Gap 10 BUN 6 L Creatinine 0.9 Creat Clearance w eGFR > 60 Random Glucose 93 Calcium 8.7 Total Bilirubin 1.3 H D AST 137 H D ALT 114 H D Alkaline Phosphatase 71 Total Protein 7.5 Albumin 3.7 Urine Color Colorless Urine Appearance Clear Urine pH 6.0 Ur Specific [place] 1.003 Urine Protein Negative Urine Glucose (UA) 1+ H Urine Ketones Negative Urine Blood Negative Urine Nitrite Negative Urine Bilirubin Negative Urine Urobilinogen Negative Ur Leukocyte Esterase Negative RPR Titer 11/30/17 07:20 WBC RBC Hgb Hct MCV MCH MCHC RDW Plt Count MPV Sodium Potassium Chloride Carbon Dioxide Anion Gap BUN Creatinine Creat Clearance w eGFR Random Glucose Calcium Total Bilirubin AST ALT Alkaline Phosphatase Total Protein Albumin Urine Color Urine Appearance Urine pH Ur Specific [place] Urine Protein Urine Glucose (UA) Urine Ketones Urine Blood Urine Nitrite Urine Bilirubin Urine Urobilinogen Ur Leukocyte Esterase RPR Titer Nonreactive LABS NOTED. Assessment: 12/01/17 12:16 WITHDRAWAL SYMPTOMS. Plan: CONTINUE DETOX. INCREASE DAILY PO FLUID INTAKE. PRN IMMODIUM FOR DIARRHEA. ENCOURAGE AMBULATION.
[2017-12-01] MEDS: NICOTINE POLACRILEX 2 MG GUM BC PRN ×2 (19:52→22:28)
[2017-12-01] MEDS: THIAMINE HCL 100 MG TABLET (FP) PO SCH (22:25)
[2017-12-01] MEDS: chlordiazePOXIDE 5 MG CAPSULE PO SCH (22:25)
[2017-12-02 09:49] VITALS: BP 129/85; PULSE 77; TEMP 97.5
[2017-12-02] MEDS: chlordiazePOXIDE 5 MG CAPSULE PO SCH ×2 (09:59→10:28)
[2017-12-02] MEDS: NICOTINE 14 MG/24 HOURS TOPICAL PATCH TD SCH (10:28)
[2017-12-02] MEDS: PRENATAL VITAMINS W/ FOLIC ACID TABLET (FP) PO SCH (10:28)
--- NOTE | 2017-12-02 16:07 | PN ---
BHS Progress Note (SOAP) Subjective: Patient denies current Detox symptoms and reports that he feels well overall. Objective: PATIENT A & O X 3, OBSERVED AMBULATING ON UNIT. NO ACUTE DISTRESS. 12/02/17 16:06 Vital Signs Temperature 97.5 F L 12/02/17 09:48 Pulse Rate 77 12/02/17 09:48 Respiratory Rate 18 12/02/17 09:48 Blood Pressure 129/85 12/02/17 09:48 O2 Sat by Pulse Oximetry (%) Laboratory Tests 11/29/17 11/30/17 11/30/17 22:30 07:20 07:20 WBC 4.2 RBC 4.29 Hgb 13.3 Hct 39.3 MCV 91.8 MCH 31.0 MCHC 33.7 RDW 13.6 Plt Count 104 L D MPV 9.6 Sodium 141 Potassium 3.9 Chloride 101 Carbon Dioxide 30 Anion Gap 10 BUN 6 L Creatinine 0.9 Creat Clearance w eGFR > 60 Random Glucose 93 Calcium 8.7 Total Bilirubin 1.3 H D AST 137 H D ALT 114 H D Alkaline Phosphatase 71 Total Protein 7.5 Albumin 3.7 Urine Color Colorless Urine Appearance Clear Urine pH 6.0 Ur Specific [place] 1.003 Urine Protein Negative Urine Glucose (UA) 1+ H Urine Ketones Negative Urine Blood Negative Urine Nitrite Negative Urine Bilirubin Negative Urine Urobilinogen Negative Ur Leukocyte Esterase Negative RPR Titer 11/30/17 07:20 WBC RBC Hgb Hct MCV MCH MCHC RDW Plt Count MPV Sodium Potassium Chloride Carbon Dioxide Anion Gap BUN Creatinine Creat Clearance w eGFR Random Glucose Calcium Total Bilirubin AST ALT Alkaline Phosphatase Total Protein Albumin Urine Color Urine Appearance Urine pH Ur Specific [place] Urine Protein Urine Glucose (UA) Urine Ketones Urine Blood Urine Nitrite Urine Bilirubin Urine Urobilinogen Ur Leukocyte Esterase RPR Titer Nonreactive LABS NOTED. Assessment: 12/02/17 16:06 COMPLETION OF DETOX REGIMEN. Plan: PATIENT SCHEDULED FOR DISCHARGE FROM DETOX UNIT TODAY.
--- NOTE | 2017-12-02 16:08 | DS ---
[facility] Detox Discharge Summary Admission Date: 11/29/17 Discharge Date: 12/02/17 - History Present History: Alcohol Dependence Additional Comments: PATIENT WILL MOVING TO [facility] IN THE NEAR FUTURE AND REPORTS THAT HE WILL LOOK FOR AN OUTPATIENT PROGRAM TO ATTEND ONCE SITUATED THERE. Pertinent Past History: History of Fatty Liver, Depression, Nicotine Dependence. - Physical Exam Results Vital Signs: Vital Signs Temperature 97.5 F L 12/02/17 09:48 Pulse Rate 77 12/02/17 09:48 Respiratory Rate 18 12/02/17 09:48 Blood Pressure 129/85 12/02/17 09:48 O2 Sat by Pulse Oximetry (%) Pertinent Admission Physical Exam Findings: WITHDRAWAL SYMPTOMS. Laboratory Tests 11/29/17 11/30/17 11/30/17 22:30 07:20 07:20 WBC 4.2 RBC 4.29 Hgb 13.3 Hct 39.3 MCV 91.8 MCH 31.0 MCHC 33.7 RDW 13.6 Plt Count 104 L D MPV 9.6 Sodium 141 Potassium 3.9 Chloride 101 Carbon Dioxide 30 Anion Gap 10 BUN 6 L Creatinine 0.9 Creat Clearance w eGFR > 60 Random Glucose 93 Calcium 8.7 Total Bilirubin 1.3 H D AST 137 H D ALT 114 H D Alkaline Phosphatase 71 Total Protein 7.5 Albumin 3.7 Urine Color Colorless Urine Appearance Clear Urine pH 6.0 Ur Specific [place] 1.003 Urine Protein Negative Urine Glucose (UA) 1+ H Urine Ketones Negative Urine Blood Negative Urine Nitrite Negative Urine Bilirubin Negative Urine Urobilinogen Negative Ur Leukocyte Esterase Negative RPR Titer 11/30/17 07:20 WBC RBC Hgb Hct MCV MCH MCHC RDW Plt Count MPV Sodium Potassium Chloride Carbon Dioxide Anion Gap BUN Creatinine Creat Clearance w eGFR Random Glucose Calcium Total Bilirubin AST ALT Alkaline Phosphatase Total Protein Albumin Urine Color Urine Appearance Urine pH Ur Specific [place] Urine Protein Urine Glucose (UA) Urine Ketones Urine Blood Urine Nitrite Urine Bilirubin Urine Urobilinogen Ur Leukocyte Esterase RPR Titer Nonreactive LABS NOTED. - Treatment Hospital Course: Detox Protocol Followed, Detoxed Safely, Responded well, Discharged Condition Good Patient has Accepted a Rehab Referral to: PATIENT WILL PURSUE OUPTATIENT PROGRAM ONCE HE MOVES TO [facility]. - Medication Discharge Medications: Ambulatory Orders NK [No Known Home Medication] 05/25/14 - Diagnosis (1) Alcohol dependence with uncomplicated withdrawal Status: Acute (2) Nicotine dependence Status: Acute Qualifiers: Nicotine product type: cigarettes Substance use status: uncomplicated Qualified Code(s): F17.210 - Nicotine dependence, cigarettes, uncomplicated (3) Substance induced mood disorder Status: Suspected - AMA Did Patient Leave Against Medical Advice: No
[2017-12-02] MEDS ORDERED: chlordiazePOXIDE HCL 10 MG CAPSULE PO SCH (23:00)
[2017-12-04 14:57] LABS: BILIRUBIN,DIRECT 0.4 mg/dL (0.0-0.2)
== END 2017-12-02 10:52 | disposition home or self-care (01) | DRG 775 ==
LOC: YASAS 19:59 → Y3N 22:10
PROVIDERS: ADMIT Surgery; ATTEND Surgery
PROC: HZ2ZZZZ Detoxification Services for Substance Abuse Treatment (ICD-10-PCS; principal; 2017-11-29)
DX: F10.230 Alcohol dependence with withdrawal, uncomplicated (principal); F17.210 Nicotine dependence, cigarettes, uncomplicated; F19.24 Other psychoactive substance dependence with psychoactive substance-induced mood disorder; K76.0 Fatty (change of) liver, not elsewhere classified
CPT/HCPCS: 36415; 80053; 80076; 81003; 85027; 86593; 93005; 93010

== ENCOUNTER 2018-03-14 15:08 | Inpatient (IN) | payer BC ==
[2018-03-14 20:54] VITALS: BMI 25.1
--- NOTE | 2018-03-14 22:04 | HP ---
CIWA Score - CIWA Score Nausea/Vomitin Muscle Tremors: 4-Moderate,w/Arms Extend Anxiety: 4-Mod. Anxious/Guarded Agitation: 4-Moderately Restless (vomiting x 2) Paroxysmal Sweats: 2 Orientation: 0-Oriented Tacttile Disturbances: 0-None Auditory Disturbances: 0-None Visual Disturbances: 0-None Headache: 0-None Present CIWA-Ar Total Score: 17 Admission ROS S - HPI Chief Complaint: Alcohol withdrawal symptoms Allergies/Adverse Reactions: Allergies Allergy/AdvReac Type Severity Reaction Status Date / Time No Known Allergies Allergy Verified 11/29/17 22:14 History of Present Illness: 48 years old male with a long history of alcohol dependence is seeking admission to detox. Patient was in detox in November and insignificant period of sobriety. He has medical history of depression, fatty liver, seizure and anxiety. He denies suicide attempt and suicidal ideation at this time. Exam Limitations: No Limitations - Ebola screening Have you traveled outside of the country in the last 21 days: No Have you had contact with anyone from an Ebola affected area: No Have you been sick,other than usual withdrawal symptoms: No - Review of Systems Constitutional: Chills, Loss of Appetite, Malaise, Night Sweats, Changes in sleep EENT: reports: No Symptoms Reported Respiratory: reports: No Symptoms reported Cardiac: reports: No Symptoms Reported GI: reports: Nausea, Poor Appetite, Poor Fluid Intake, Vomiting (x 2), Abdominal cramping : reports: No Symptoms Reported Musculoskeletal: reports: Joint Pain, Muscle Weakness Integumentary: reports: Dryness Neuro: reports: Tremors Endocrine: reports: No Symptoms Reported Hematology: reports: No Symptoms Reported Psychiatric: reports: Orientated x3, Anxious, Depressed Other Systems: Reviewed and Negative Patient History - Patient Medical History Hx Anemia: No Hx Asthma: No Hx Chronic Obstructive Pulmonary Disease (COPD): No Hx Cancer: No Hx Cardiac Disorders: No Hx Congestive Heart Failure: No Hx Hypertension: No Hx Hypercholesterolemia: No Hx Pacemaker: No HX Cerebrovascular Accident: No Hx Seizures: No Hx Dementia: No Hx Diabetes: No Hx Gastrointestinal Disorders: No Hx Liver Disease: Yes (FATTY LIVER) Hx Genitourinary Disorders: No Hx Sexually Transmitted Disorders: No Hx Renal Disease (ESRD): No Hx Thyroid Disease: No Hx Human Immunodeficiency Virus (HIV): No (last 09/03 negative) Hx Hepatitis C: No (2016) Hx Depression: Yes (Not on medication) Hx Suicide Attempt: No Hx Bipolar Disorder: No Hx Schizophrenia: No Other Medical History: Anxiety - Not on medication - Patient Surgical History Past Surgical History: No Hx Neurologic Surgery: No Hx Cataract Extraction: No Hx Cardiac Surgery: No Hx Lung Surgery: No Hx Breast Surgery: No Hx Breast Biopsy: No Hx Abdominal Surgery: No Hx Appendectomy: No Hx Cholecystectomy: No Hx Genitourinary Surgery: No Hx Section: No Hx Orthopedic Surgery: No Other Surgical History: pilonidal cyst in 2004 Anesthesia Reaction: No - PPD History Previous Implant?: Yes Documented Results: Negative w/proof Implanted On Prior [facility] Admission?: Yes Date: 07/25/17 Results: 0 MM PPD to be Administered?: No - Reproductive History Patient is a Female of Child Bearing Age (11 -55 yrs old): No (Male) - Smoking Cessation Smoking history: Current every day smoker Have you smoked in the past 12 months: No Aproximately how many cigarettes per day: 3 Cigars Per Day: 0 Hx Chewing Tobacco Use: No Initiated information on smoking cessation: Yes 'Breaking Loose' booklet given: 03/14/18 - Substance & Tx. History Hx Alcohol Use: Yes Hx Substance Use: No Substance Use Type: Alcohol Hx Substance Use Treatment: Yes ([facility]) Family Disease History - Family Disease History Family Disease History: Diabetes: Father (ALCOHOL), Other: Father, Mother ( alzheimer's, brain disease- ), Brother (suicide "rope") Admission Physical Exam BHS - Vital Signs Vital Signs: Vital Signs - 24 hr 03/14/18 20:51 Temperature 97.7 F Pulse Rate 78 Respiratory 18 Rate Blood Pressure 144/85 - Physical General Appearance: Yes: Moderate Distress, Tremorous, Irritable, Sweating, Anxious HEENTM: Yes: EOMI, Normal ENT Inspection, Normal Voice, RODO Respiratory: Yes: Lungs Clear, Normal Breath Sounds, No Respiratory Distress Neck: Yes: Supple Breast: Yes: Breast Exam Deferred Cardiology: Yes: Regular Rhythm, Regular Rate Abdominal: Yes: Normal Bowel Sounds Genitourinary: Yes: Within Normal Limits Back: Yes: Normal Inspection Musculoskeletal: Yes: Within Normal Limits Extremities: Yes: Normal Inspection Neurological: Yes: optical technician II-XII NML intact, Alert, Normal Mood/Affect, Normal Response Integumentary: Yes: Warm Lymphatic: Yes: Within Normal Limits - Diagnostic (1) Alcohol dependence with uncomplicated withdrawal Current Visit: No Status: Acute (2) Nicotine dependence Current Visit: No Status: Acute Qualifiers: Nicotine product type: cigarettes Substance use status: uncomplicated Qualified Code(s): F17.210 - Nicotine dependence, cigarettes, uncomplicated Comment: patient stated that smoke 3-5 cigarettes during drinking days no cigarette smoking when not drinking alcohol (3) Fatty liver Current Visit: No Status: Chronic (4) Seizure Current Visit: No Status: Chronic (5) anxiety and depression Current Visit: No Status: Suspected Comment: difficulty to fall a sleep Cleared for Admission [facility] - Detox or Rehab [facility] Level of Care: Medically Managed Detox Regimen/Protocol: Librium S Breath Alcohol Content Breath Alcohol Content: 0.319 Urine Drug Screen - Results Drug Screen Negative: Yes
[2018-03-15] MEDS ORDERED: chlordiazePOXIDE HCL 25 MG CAPSULE PO PRN (00:34)
[2018-03-15] MEDS ORDERED: ACETAMINOPHEN 325 MG TABLET (FP) PO PRN (00:34)
[2018-03-15] MEDS ORDERED: IBUPROFEN 400 MG TABLET (FP) PO PRN (00:34)
[2018-03-15] MEDS ORDERED: LOPERAMIDE HCL 2 MG CAPSULE PO PRN (00:34)
[2018-03-15] MEDS ORDERED: P-EPHED 60MG/TRIPROLIDI 2.5MG TABLET PO PRN (00:34)
[2018-03-15] MEDS ORDERED: chlordiazePOXIDE HCL 25 MG CAPSULE PO ONE (00:34)
[2018-03-15] MEDS ORDERED: MAG HYDROX/AL HYDROX/SIMETH 30 ML UNIT-DOSE CUP PO PRN (00:34)
[2018-03-15] MEDS ORDERED: NICOTINE POLACRILEX 2 MG GUM BC PRN (00:34)
[2018-03-15] MEDS ORDERED: MAGNESIUM HYDROX 2400MG/30ML ORAL SUSPENSION 30 ML CUP PO PRN (00:34)
[2018-03-15] MEDS ORDERED: guaiFENesin/D-METHORPHAN HB 10 ML UNIT-DOSE CUPS PO PRN (00:34)
[2018-03-15] MEDS ORDERED: MAGNESIUM CITRATE 300 ML BOTTLE PO PRN (00:34)
[2018-03-15] MEDS: chlordiazePOXIDE HCL 25 MG CAPSULE PO SCH ×4 (06:38→22:27)
[2018-03-15 10:38] LABS: URINE APPEARANCE CLEAR; URINE BILIRUBIN NEGATIVE (<2.0 mg/dL); URINE COLOR YELLOW; URINE GLUCOSE (UA) NEGATIVE (NEGATIVE); URINE KETONE NEGATIVE (NEGATIVE); URINE LEUK ESTERASE NEGATIVE (NEGATIVE); URINE NITRITE NEGATIVE (NEGATIVE); URINE PROTEIN NEGATIVE (NEGATIVE); URINE UROBILINOGEN NEGATIVE mg/dL (0.2-1.0)
[2018-03-15] MEDS: PRENATAL VITAMINS W/ FOLIC ACID TABLET (FP) PO SCH (10:39)
[2018-03-15] MEDS: NICOTINE 14 MG/24 HOURS TOPICAL PATCH TD SCH (10:39)
--- NOTE | 2018-03-15 10:59 | EKG ---
Test Reason : Blood Pressure : / mmHG Vent. Rate : 068 BPM Atrial Rate : 068 BPM P-R Int : 148 ms QRS Dur : 090 ms QT Int : 376 ms P-R-T Axes : 075 058 048 degrees QTc Int : 399 ms NORMAL SINUS RHYTHM INCREASED R/S RATIO IN V1, CONSIDER EARLY TRANSITION OR POSTERIOR INFARCT ABNORMAL ECG Confirmed by MD LISA, MAXWELL ([id number]) on 03/15/2018 10:59:24 AM Referred By: Confirmed By:MAXWELL GONZALEZ MD
--- NOTE | 2018-03-15 15:13 | CONSULT ---
[facility] Psychiatric Consult - Data Date of interview: 03/15/18 Admission source: [facility] Identifying data: Patient is a 48 year old single male, without children, domiciled, unemployed, and supported by [facility] benefits. This is one of multiple admissions for patient. Pt. admitted to for alcohol dependence. Substance Abuse History: Smoking Cessation. Smoking history: Current every day smoker. Have you smoked in the past 12 months: No. Aproximately how many cigarettes per day: 3. Cigars Per Day: 0. Hx Chewing Tobacco Use: No. Initiated information on smoking cessation: Yes. 'Breaking Loose' booklet given : 03/14/18. - Substance & Tx. History. Hx Alcohol Use: Yes. Hx Substance Use : No. Substance Use Type: Alcohol. Hx Substance Use Treatment: Yes ([facility]) Medical History: Significant for liver disease (fatty liver) and a distant history of surgery excision of a pilonidal cyst in 2004 Psychiatric History: Patient reports one psychiatric hospitalization in the [facility] after patient was intoxicated and stated he wanted to hurt himself. Pt. was eventually discharged the next day. Mr. Lin reports h/o outpatient psychiatric care several years but states it was more for therapy. He was prescribed a medication (prozac as per records) but reports noncompliance. Pt. denies h/o suicide attempt. Mr. Lin reports poor sleep. Physical/Sexual Abuse/Trauma History: denies. Mental Status Exam - Mental Status Exam Alert and Oriented to: Time, Place, Person Cognitive Function: Good Patient Appearance: Well Groomed Mood: Euthymic Affect: Mood Congruent Patient Behavior: Appropriate, Cooperative Speech Pattern: Appropriate Voice Loudness: Moderately Soft/Quiet Thought Process: Intact, Goal Oriented Thought Disorder: Not Present Hallucinations: Denies Suicidal Ideation: Denies Homicidal Ideation: Denies Insight/Judgement: Poor Sleep: Poorly Appetite: Fair Muscle strength/Tone: Normal Gait/Station: Normal Psychiatric Findings - Problem List ([place] 1, 2,3) (1) Insomnia Current Visit: Yes Status: Acute (2) Alcohol dependence with uncomplicated withdrawal Current Visit: Yes Status: Acute (3) Nicotine dependence Current Visit: Yes Status: Chronic Qualifiers: Nicotine product type: cigarettes Substance use status: uncomplicated Qualified Code(s): F17.210 - Nicotine dependence, cigarettes, uncomplicated Comment: patient stated that smoke 3-5 cigarettes during drinking days no cigarette smoking when not drinking alcohol - Initial Treatment Plan Initial Treatment Plan: Psychoeducation provided. Detoxification in progress. Melatonin 5mg ordered by [facility]. Observation.
--- NOTE | 2018-03-15 17:50 | PN ---
S CIWA - CIWA Score Nausea/Vomitin-Mild Nausea/No Vomiting Muscle Tremors: 3 Anxiety: 2 Agitation: 4-Moderately Restless Paroxysmal Sweats: 3 Orientation: 1-Uncertain about Date Tacttile Disturbances: 0-None Auditory Disturbances: 0-None Visual Disturbances: 0-None Headache: 0-None Present CIWA-Ar Total Score: 14 BHS Progress Note (SOAP) Subjective: tremor sweat restlessness anxiety Objective: 03/15/18 17:50 Vital Signs Temperature 98.1 F 03/15/18 17:43 Pulse Rate 81 03/15/18 17:43 Respiratory Rate 18 03/15/18 17:43 Blood Pressure 128/83 03/15/18 17:43 O2 Sat by Pulse Oximetry (%) Laboratory Last Values Urine Color Yellow 03/15/18 08:15 Urine Appearance Clear 03/15/18 08:15 Urine pH 6.0 (5.0-8.0) 03/15/18 08:15 Ur Specific [place] 1.014 (1.001-1.035) 03/15/18 08:15 Urine Protein Negative (NEGATIVE) 03/15/18 08:15 Urine Glucose (UA) Negative (NEGATIVE) 03/15/18 08:15 Urine Ketones Negative (NEGATIVE) 03/15/18 08:15 Urine Blood Negative (NEGATIVE) 03/15/18 08:15 Urine Nitrite Negative (NEGATIVE) 03/15/18 08:15 Urine Bilirubin Negative (<2.0 mg/dL) 03/15/18 08:15 Urine Urobilinogen Negative mg/dL (0.2-1.0) 03/15/18 08:15 Ur Leukocyte Esterase Negative (NEGATIVE) 03/15/18 08:15 lab noted Assessment: 03/15/18 17:51 withdrawal sx Plan: continue detox
[2018-03-15] MEDS: MENTHOL/PHENOL 1 EACH UD MM PRN (18:42)
[2018-03-15] MEDS ORDERED: MELATONIN 5 MG TABLETS PO PRN (22:00)
[2018-03-15] MEDS: THIAMINE HCL 100 MG TABLET (FP) PO SCH (22:27)
[2018-03-16] MEDS: chlordiazePOXIDE HCL 25 MG CAPSULE PO SCH ×4 (05:53→22:18)
[2018-03-16 10:06] LABS: HEMATOCRIT 40.4 % (35.4-49); HEMOGLOBIN 13.2 GM/dL (11.7-16.9); MCH 30.8 pg (25.7-33.7); MCHC 32.7 g/dl (32.0-35.9); MEAN CELL VOLUME 94.2 fl (80-96); MEAN PLT VOLUME 9.6 fl (7.5-11.1); PLATELET COUNT 111 K/MM3 (134-434); RBC 4.29 M/mm3 (4.00-5.60); RDW 13.7 % (11.9-15.9); WHITE BLOOD COUNT 4.1 K/mm3 (4.0-10.0)
[2018-03-16] MEDS: NICOTINE 14 MG/24 HOURS TOPICAL PATCH TD SCH (10:10)
[2018-03-16] MEDS: PRENATAL VITAMINS W/ FOLIC ACID TABLET (FP) PO SCH (10:10)
[2018-03-16 10:33] LABS: ALBUMIN 3.4 g/dl (3.4-5.0); ALK PHOS 72 U/L (45-117); ANION GAP 9 MMOL/L (8-16); BLOOD UREA NITROGEN 9 mg/dL (7-18); CALCIUM 9.5 mg/dL (8.5-10.1); CHLORIDE 104 mmol/L (98-107); CO2 30 mmol/L (21-32); CREATININE 0.7 mg/dL (0.55-1.3); GLUCOSE,RANDOM 80 mg/dL (74-106); POTASSIUM 3.8 mmol/L (3.5-5.1); SGOT/AST 66 U/L (15-37); SGPT/ALT 73 U/L (13-61); SODIUM 143 mmol/L (136-145)
--- NOTE | 2018-03-16 11:22 | PN ---
S CIWA - CIWA Score Nausea/Vomitin-No Nausea/No Vomiting Muscle Tremors: 4-Moderate,w/Arms Extend Anxiety: 2 Agitation: 4-Moderately Restless Paroxysmal Sweats: 1-Minimal Palms Moist Orientation: 0-Oriented Tacttile Disturbances: 1-Very Mild Itch/Numbness Auditory Disturbances: 0-None Visual Disturbances: 0-None Headache: 0-None Present CIWA-Ar Total Score: 12 BHS Progress Note (SOAP) Subjective: sweat tremor restlessness anxiety Objective: 03/16/18 11:21 Vital Signs Temperature 96.1 F L 03/16/18 09:24 Pulse Rate 72 03/16/18 09:24 Respiratory Rate 20 03/16/18 09:24 Blood Pressure 137/95 03/16/18 09:24 O2 Sat by Pulse Oximetry (%) Laboratory Last Values WBC 4.1 K/mm3 (4.0-10.0) 03/16/18 07:30 RBC 4.29 M/mm3 (4.00-5.60) 03/16/18 07:30 Hgb 13.2 GM/dL (11.7-16.9) 03/16/18 07:30 Hct 40.4 % (35.4-49) 03/16/18 07:30 MCV 94.2 fl (80-96) 03/16/18 07:30 MCH 30.8 pg (25.7-33.7) 03/16/18 07:30 MCHC 32.7 g/dl (32.0-35.9) 03/16/18 07:30 RDW 13.7 % (11.9-15.9) 03/16/18 07:30 Plt Count 111 K/MM3 (134-434) L 03/16/18 07:30 MPV 9.6 fl (7.5-11.1) 03/16/18 07:30 Sodium 143 mmol/L (136-145) 03/16/18 07:30 Potassium 3.8 mmol/L (3.5-5.1) 03/16/18 07:30 Chloride 104 mmol/L (98-107) 03/16/18 07:30 Carbon Dioxide 30 mmol/L (21-32) 03/16/18 07:30 Anion Gap 9 MMOL/L (8-16) 03/16/18 07:30 BUN 9 mg/dL (7-18) 03/16/18 07:30 Creatinine 0.7 mg/dL (0.55-1.3) 03/16/18 07:30 Creat Clearance w eGFR > 60 (>60) 03/16/18 07:30 Random Glucose 80 mg/dL (74-106) 03/16/18 07:30 Calcium 9.5 mg/dL (8.5-10.1) 03/16/18 07:30 Total Bilirubin 2.0 mg/dL (0.2-1) H 03/16/18 07:30 AST 66 U/L (15-37) H 03/16/18 07:30 ALT 73 U/L (13-61) H 03/16/18 07:30 Alkaline Phosphatase 72 U/L (45-117) 03/16/18 07:30 Total Protein 7.0 g/dl (6.4-8.2) 03/16/18 07:30 Albumin 3.4 g/dl (3.4-5.0) 03/16/18 07:30 Urine Color Yellow 03/15/18 08:15 Urine Appearance Clear 03/15/18 08:15 Urine pH 6.0 (5.0-8.0) 03/15/18 08:15 Ur Specific [place] 1.014 (1.001-1.035) 03/15/18 08:15 Urine Protein Negative (NEGATIVE) 03/15/18 08:15 Urine Glucose (UA) Negative (NEGATIVE) 03/15/18 08:15 Urine Ketones Negative (NEGATIVE) 03/15/18 08:15 Urine Blood Negative (NEGATIVE) 03/15/18 08:15 Urine Nitrite Negative (NEGATIVE) 03/15/18 08:15 Urine Bilirubin Negative (<2.0 mg/dL) 03/15/18 08:15 Urine Urobilinogen Negative mg/dL (0.2-1.0) 03/15/18 08:15 Ur Leukocyte Esterase Negative (NEGATIVE) 03/15/18 08:15 lab noted Assessment: 03/16/18 11:21 alcohol withdrawal sx Plan: continue alcohol detox regimen
[2018-03-16] MEDS: MENTHOL/PHENOL 1 EACH UD MM PRN (14:57)
[2018-03-16] MEDS ORDERED: RANITIDINE HCL 150 MG TABLET (FP) PO ONE (15:42)
[2018-03-16] MEDS: RANITIDINE HCL 150 MG TABLET (FP) PO SCH (22:18)
[2018-03-16] MEDS: THIAMINE HCL 100 MG TABLET (FP) PO SCH (22:18)
[2018-03-17] MEDS: chlordiazePOXIDE 5 MG CAPSULE PO SCH ×4 (05:35→22:05)
[2018-03-17] MEDS: RANITIDINE HCL 150 MG TABLET (FP) PO SCH ×2 (10:28→22:05)
[2018-03-17] MEDS: NICOTINE 14 MG/24 HOURS TOPICAL PATCH TD SCH (10:28)
[2018-03-17] MEDS: PRENATAL VITAMINS W/ FOLIC ACID TABLET (FP) PO SCH (10:28)
--- NOTE | 2018-03-17 12:52 | PN ---
[facility] Progress Note Note: Patient tolerating detox well. No complaints voiced. Laboratory Tests 03/15/18 03/16/18 03/16/18 08:15 07:30 07:30 WBC 4.1 RBC 4.29 Hgb 13.2 Hct 40.4 MCV 94.2 MCH 30.8 MCHC 32.7 RDW 13.7 Plt Count 111 L MPV 9.6 Sodium 143 Potassium 3.8 Chloride 104 Carbon Dioxide 30 Anion Gap 9 BUN 9 Creatinine 0.7 Creat Clearance w eGFR > 60 Random Glucose 80 Calcium 9.5 Total Bilirubin 2.0 H AST 66 H ALT 73 H Alkaline Phosphatase 72 Total Protein 7.0 Albumin 3.4 Urine Color Yellow Urine Appearance Clear Urine pH 6.0 Ur Specific [place] 1.014 Urine Protein Negative Urine Glucose (UA) Negative Urine Ketones Negative Urine Blood Negative Urine Nitrite Negative Urine Bilirubin Negative Urine Urobilinogen Negative Ur Leukocyte Esterase Negative RPR Titer 03/16/18 07:30 WBC RBC Hgb Hct MCV MCH MCHC RDW Plt Count MPV Sodium Potassium Chloride Carbon Dioxide Anion Gap BUN Creatinine Creat Clearance w eGFR Random Glucose Calcium Total Bilirubin AST ALT Alkaline Phosphatase Total Protein Albumin Urine Color Urine Appearance Urine pH Ur Specific [place] Urine Protein Urine Glucose (UA) Urine Ketones Urine Blood Urine Nitrite Urine Bilirubin Urine Urobilinogen Ur Leukocyte Esterase RPR Titer Nonreactive Vital Signs Temperature 98.4 F 03/17/18 08:54 Pulse Rate 53 L 03/17/18 08:54 Respiratory Rate 18 03/17/18 08:54 Blood Pressure 124/79 03/17/18 08:54 O2 Sat by Pulse Oximetry (%) PE: alert and oriented x 3 skin warm and dry car [id number] resp cta bl ext no edema a/p: withdrawal syndrome continue detox encourage oral fluids continue to monitor
[2018-03-17] MEDS: THIAMINE HCL 100 MG TABLET (FP) PO SCH (22:05)
[2018-03-17] MEDS: MENTHOL/PHENOL 1 EACH UD MM PRN (22:51)
[2018-03-18] MEDS ORDERED: chlordiazePOXIDE HCL 10 MG CAPSULE PO SCH (05:00)
--- NOTE | 2018-03-18 08:56 | DS ---
[facility] Detox Discharge Summary Admission Date: 03/14/18 Discharge Date: 03/18/18 - History Present History: Alcohol Dependence - Physical Exam Results Vital Signs: Vital Signs Temperature 97.3 F L 03/18/18 05:43 Pulse Rate 53 L 03/18/18 05:43 Respiratory Rate 18 03/18/18 05:43 Blood Pressure 120/76 03/18/18 05:43 O2 Sat by Pulse Oximetry (%) - Treatment Hospital Course: Detox Protocol Followed, Detoxed Safely, Responded well, Discharged Condition Good, Rehab Referral Accepted - Medication Discharge Medications: Ambulatory Orders NK [No Known Home Medication] 05/25/14 - Diagnosis (1) Alcohol dependence with uncomplicated withdrawal Current Visit: Yes Status: Chronic (2) Insomnia Current Visit: Yes Status: Acute (3) Withdrawal syndrome Current Visit: Yes Status: Acute (4) Nicotine dependence Current Visit: Yes Status: Chronic Qualifiers: Nicotine product type: cigarettes Substance use status: uncomplicated Qualified Code(s): F17.210 - Nicotine dependence, cigarettes, uncomplicated (5) Syncope Current Visit: No Status: Active (6) Alcohol dependence Current Visit: No Status: Acute (7) Anxiety disorder Current Visit: No Status: Acute (8) Anxious mood Current Visit: No Status: Acute (9) Depressed mood Current Visit: No Status: Acute (10) Insomnia Current Visit: No Status: Acute (11) Fatty liver Current Visit: No Status: Chronic (12) Seizure Current Visit: No Status: Chronic (13) Left eye injury Current Visit: No Status: Suspected Qualifiers: Encounter type: subsequent encounter Qualified Code(s): S05.92XD - Unspecified injury of left eye and orbit, subsequent encounter (14) Substance induced mood disorder Current Visit: No Status: Suspected (15) Weight loss Current Visit: No Status: Suspected (16) anxiety and depression Current Visit: No Status: Suspected - AMA Did Patient Leave Against Medical Advice: No
[2018-03-18 09:13] VITALS: BP 141/74; PULSE 57; TEMP 97.7
== END 2018-03-18 09:24 | disposition home or self-care (01) | DRG 775 ==
LOC: YASAS 15:08 → Y6N 22:48
PROC: HZ2ZZZZ Detoxification Services for Substance Abuse Treatment (ICD-10-PCS; principal; 2018-03-14)
DX: F10.230 Alcohol dependence with withdrawal, uncomplicated (principal); F17.210 Nicotine dependence, cigarettes, uncomplicated; F19.24 Other psychoactive substance dependence with psychoactive substance-induced mood disorder; F41.9 Anxiety disorder, unspecified; F32.9 Major depressive disorder, single episode, unspecified; G47.00 Insomnia, unspecified; K76.0 Fatty (change of) liver, not elsewhere classified; Z59.0 Homelessness
CPT/HCPCS: 36415; 80053; 81003; 85027; 86593; 93005; 93010